=== PATIENT | male | born 1960 | race Caucasian/White ===

== ENCOUNTER 2017-10-04 19:16 | Emergency (ER) | payer MEDICAID ==
[2017-10-04 19:23] VITALS: BMI 25.7
[2017-10-04 19:27] VITALS: BP 117/79; PULSE 88; RESP 18; TEMP 99; O2SAT 98
--- NOTE | 2017-10-04 20:07 | ED PDOC ---
Arrival/HPI - General Historian: Patient - General Chief Complaint: ENT Problem Time Seen by Provider: 10/04/17 19:36 - History of Present Illness Narrative History of Present Illness (Text): 10/04/17 20:02 56yo male present with complaint of sore throat and fever x 2weeks. + Odynophagia. Denies dysphagia, drooling, abdominal pain, cough, sick contact, travel, any other complaint. (Zeny Griffin) Past Medical History - Provider Review Nursing Documentation Reviewed: Yes - Endocrine/Metabolic Hx Hypothyroidism: Yes - Psychiatric Hx Substance Use: No - Anesthesia Hx Anesthesia: No Family/Social History - Physician Review Nursing Documentation Reviewed: Yes Family/Social History: Unknown Family HX Smoking Status: Never Smoked Hx Alcohol Use: Yes Frequency of alcohol use: Socially Hx Substance Use: No Allergies/Home Meds Allergies/Adverse Reactions: Allergies No Known Allergies Allergy (Verified 06/30/16 11:57) Home Medications: Home Meds Medication Instructions Recorded Confirmed Diphenhydramine HCl/Calamine 180 ml TP DAILY 06/30/16 06/30/16 [Caldyphen Lotion] Levothyroxine [Synthroid] 25 mcg PO DAILY 06/30/16 06/30/16 Valacyclovir HCl [Valacyclovir] 1 gm PO DAILY 06/30/16 06/30/16 Review of Systems - Physician Review All systems were reviewed & negative as marked: Yes - Review of Systems Constitutional: Fevers Eyes: Normal ENT: Sore Throat Respiratory: Normal Cardiovascular: Normal Gastrointestinal: Normal Genitourinary Male: Normal Musculoskeletal: Normal Skin: Normal Neurological: Normal Endocrine: Normal Hemo/Lymphatic: Normal Psychiatric: Normal Physical Exam Vital Signs Reviewed: Yes Temperature: Afebrile Blood Pressure: Normal Pulse: Regular Respiratory Rate: Normal Appearance: Positive for: Well-Appearing, Non-Toxic, Comfortable Pain Distress: None Mental Status: Positive for: Alert and Oriented X 3 - Systems Exam Head: Present: Atraumatic, Normocephalic Pupils: Present: PERRL Extroacular Muscles: Present: EOMI Conjunctiva: Present: Normal Mouth: Present: Moist Mucous Membranes Pharnyx: Present: Normal. No: ERYTHEMA, EXUDATE, TONSILS ENLARGED, Peritonsilar Swelling, Uvular Deviation, Muffled/Hoarse Voice, Soft Palate/ Uvular Edema Neck: Present: Normal Range of Motion Respiratory/Chest: Present: Clear to Auscultation, Good Air Exchange. No: Respiratory Distress, Accessory Muscle Use Cardiovascular: Present: Regular Rate and Rhythm, Normal S1, S2. No: Murmurs Abdomen: Present: Normal Bowel Sounds. No: Tenderness, Distention, Peritoneal Signs Back: Present: Normal Inspection Upper Extremity: Present: Normal Inspection. No: Cyanosis, Edema Lower Extremity: Present: Normal Inspection. No: Edema Neurological: Present: GCS=15, CN II-XII Intact, Speech Normal Skin: Present: Warm, Dry, Normal Color. No: Rashes Psychiatric: Present: Alert, Oriented x 3, Normal Insight, Normal Concentration Vital Signs Temp Pulse Resp BP Pulse Ox 10/04/17 19:23 99.0 F 88 18 117/79 98 - Lab Interpretations Lab Results: Lab Results 10/04/17 19:44: Influenza Typ A,B (EIA) Negative for flu a/b, Grp A Beta Strep Ag Negative Disposition/Present on Arrival - Present on Arrival Any Indicators Present on Arrival: No History of DVT/PE: No History of Uncontrolled Diabetes: No Urinary Catheter: No History of Decub. Ulcer: No History Surgical Site Infection Following: None - Disposition Have Diagnosis and Disposition been Completed?: Yes Disposition Time: 20:10 Patient Plan: Discharge - Disposition Diagnosis: Sore throat (viral) Disposition: HOME/ ROUTINE Condition: STABLE Additional Instructions: Follow up with your doctor Return to ED for any new or worsening symptoms Prescriptions: Benzocaine/Menthol [Sore Throat Lozenge] 1 each MM BID #30 lozenge Referrals: Demetrius Mohr Jr., MD [Primary Care Provider] - Follow up with primary Forms: [employer] (Belizean)
== END 2017-10-04 20:26 | disposition home or self-care (01) ==
LOC: ED 19:16
DX: J02.8 Acute pharyngitis due to other specified organisms (principal)

== ENCOUNTER 2018-08-18 15:08 | Emergency (ER) | payer MEDICAID ==
[2018-08-18 16:03] VITALS: BMI 25.0
[2018-08-18 17:06] VITALS: RESP 18; TEMP 98
--- NOTE | 2018-08-18 17:24 | ED PDOC ---
Arrival/HPI - General Chief Complaint: Abnormal Skin Integrity Time Seen by Provider: 08/18/18 17:12 Historian: Patient - History of Present Illness Narrative History of Present Illness (Text): 57yo male, comes to Emergency room reporting blisters to his arms and legs after he was exposed to poison shayy. Patient states he was cutting grass when he might have been exposed; he has been using OTC spray with no relief of symptoms. P atient otherwise denies any fever, chills, throat swelling, or shortness of breath. No other complaints. Symptom Onset: Gradual Past Medical History - Provider Review Nursing Documentation Reviewed: Yes - Endocrine/Metabolic Hx Hypothyroidism: Yes - Psychiatric Hx Substance Use: No - Anesthesia Hx Anesthesia: No Family/Social History - Physician Review Nursing Documentation Reviewed: Yes Family/Social History: No Known Family HX Smoking Status: Never Smoked Hx Alcohol Use: Yes Hx Substance Use: No Allergies/Home Meds Allergies/Adverse Reactions: Allergies No Known Allergies Allergy (Verified 08/21/18 01:58) Home Medications: Home Meds Medication Instructions Recorded Confirmed Levothyroxine [Synthroid] 25 mcg PO DAILY 06/30/16 08/21/18 Valacyclovir HCl [Valacyclovir] 1 gm PO DAILY 06/30/16 08/21/18 Review of Systems - Physician Review All systems were reviewed & negative as marked: Yes (per HPI) - Review of Systems Skin: Rash Physical Exam - Physical Exam Narrative Physical Exam (Text): Gen: VS reviewed, alert, well developed, well nourished, nontoxic, mild distress. ENT: normal pharynx Eye: EOMI, PERRL Neck: no JVD, supple, no adenopathy CV: regular rate, regular rhythm, no rubs, no murmur, no gallops, S1, S2, pulses equal and strong Pulm: no distress, clear to auscultation, no wheeze, no rhonchi, breath sounds equal, no rales Abd: soft, nontender, no guarding, no rebound, no rigidity, normal bowel sounds Ext: no edema Skin: Blistering and erythematous rash to bilateral arms and leg; large patch noted to right lateral leg. No signs of cellulitis. Psych: responds appropriately to questions, normal affect Neuro: oriented x 3, CN2-12 intact grossly, motor intact, sensation intact Vital Signs Temp Pulse Resp BP Pulse Ox 08/18/18 16:10 98 F 80 18 99 08/18/18 16:03 125/73 Medical Decision Making ED Course and Treatment: Impression: 57yo male w/ exposure to poison shayy Plan: -- Prednisone 60mg PO -- Reassess and disposition Progress Notes: Patient to be d/c home with prednisone taper; instructed to apply calamine lotion to right lateral leg as well. - Scribe Statement The provider has reviewed the documentation as recorded by the Scribe Antoinette Ojeda Provider Scribe Attestation: All medical record entries made by the Scribe were at my direction and personally dictated by me. I have reviewed the chart and agree that the record accurately reflects my personal performance of the history, physical exam, medical decision making, and the department course for this patient. I have also personally directed, reviewed, and agree with the discharge instructions and disposition. Disposition/Present on Arrival - Present on Arrival Any Indicators Present on Arrival: No History of DVT/PE: No History of Uncontrolled Diabetes: No Urinary Catheter: No History of Decub. Ulcer: No History Surgical Site Infection Following: None - Disposition Have Diagnosis and Disposition been Completed?: Yes Diagnosis: Poison shayy Disposition: HOME/ ROUTINE Disposition Time: 09:39 Patient Plan: Discharge Condition: STABLE Discharge Instructions (ExitCare): Poison Shayy Print Language: IRISH Prescriptions: predniSONE [Prednisone] 20 mg PO DAILY 11 Days #24 tab Forms: [employer] (Yi)
[2018-08-18 17:36] VITALS: BP 118/83; PULSE 88; O2SAT 98
== END 2018-08-18 18:00 | disposition home or self-care (01) ==
LOC: ED 15:08
DX: L23.7 Allergic contact dermatitis due to plants, except food (principal)

== ENCOUNTER 2018-08-21 01:52 | Emergency (ER) | payer MEDICAID ==
[2018-08-21 01:52] VITALS: BMI 25.0
--- NOTE | 2018-08-21 02:26 | ED PDOC ---
Arrival/HPI - General Chief Complaint: Abnormal Skin Integrity Time Seen by Provider: 08/21/18 02:11 Historian: Patient - History of Present Illness Narrative History of Present Illness (Text): 08/21/18 02:21 A 57 year old male, with no significant past medical history, presents to the emergency department with a complaint of a worsening skin rash on his right thigh. 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 He states that since then he began to develop a skin rash on his right thigh. The patient states that he believes he came into contact with poison shayy while cleaning. He notes that he was seen in the emergency department for similar complaints, but 4 days ago, the rash started to become blister-like. He reports that he has been scratching his leg. The patient states that his left lower leg has become more swollen in comparison to the left. The patient was prescribed medication for his symptoms, but he states they have not been working. The patient denies fevers, chills, headache, dizziness, chest pain, shortness of breath, dyspnea on exertion, cough, sore throat, abdominal pain, nausea, vomiting, diarrhea, back pain, neck pain, urinary/bowel changes, trauma/injury, or any other complaints. Time/Duration: Other (Last week) Symptom Onset: Gradual Symptom Course: Worsening Activities at Onset: Rest, Light Context: Home, Work Past Medical History - Provider Review Nursing Documentation Reviewed: Yes - Endocrine/Metabolic Hx Hypothyroidism: Yes - Psychiatric Hx Substance Use: No - Anesthesia Hx Anesthesia: No Family/Social History - Physician Review Nursing Documentation Reviewed: Yes Family/Social History: No Known Family HX Smoking Status: Never Smoked Hx Alcohol Use: Yes Hx Substance Use: No Allergies/Home Meds Allergies/Adverse Reactions: Allergies No Known Allergies Allergy (Verified 08/21/18 01:58) Home Medications: Home Meds Medication Instructions Recorded Confirmed Levothyroxine [Synthroid] 25 mcg PO DAILY 06/30/16 08/21/18 Valacyclovir HCl [Valacyclovir] 1 gm PO DAILY 06/30/16 08/21/18 Review of Systems - Physician Review All systems were reviewed & negative as marked: Yes - Review of Systems Constitutional: absent: Fevers ENT: absent: Sore Throat Respiratory: absent: SOB, Cough Cardiovascular: absent: Chest Pain, BAXTER Gastrointestinal: absent: Abdominal Pain, Stool Changes, Diarrhea, Nausea, Vomiting Genitourinary Male: absent: Urinary Output Changes Musculoskeletal: absent: Back Pain, Neck Pain Skin: Rash (Blistering rash on right thigh) Neurological: absent: Headache, Dizziness Physical Exam Appearance: Positive for: Well-Appearing, Non-Toxic, Comfortable Pain Distress: None Mental Status: Positive for: Alert and Oriented X 3 - Systems Exam Head: Present: Atraumatic, Normocephalic Pupils: Present: PERRL Extroacular Muscles: Present: EOMI Conjunctiva: Present: Normal Mouth: Present: Moist Mucous Membranes Neck: Present: Normal Range of Motion Respiratory/Chest: Present: Clear to Auscultation, Good Air Exchange. No: Respiratory Distress, Accessory Muscle Use Cardiovascular: Present: Regular Rate and Rhythm, Normal S1, S2. No: Murmurs Abdomen: No: Tenderness, Distention, Peritoneal Signs Back: Present: Normal Inspection Upper Extremity: Present: Normal Inspection. No: Cyanosis, Edema Lower Extremity: Present: Normal Inspection. No: Edema Neurological: Present: GCS=15, CN II-XII Intact, Speech Normal Skin: Present: Warm, Dry, Rashes (7x8 cm. rash on right thigh. Rash does not extend over the joint.), Normal Color Psychiatric: Present: Alert, Oriented x 3, Normal Insight, Normal Concentration Medical Decision Making ED Course and Treatment: 08/21/18 02:27 Impression: A 57 year old male presents to the emergency department with a complaint of a worsening rash developing on his right thigh. NO uprwards tracks, crepitus or tight compartments. NO spread of erythema over joint lines. No joint pain. Given pt has been scratching area- will likely rx w/ keflex outpt and have pt followup and continue steroids. N/V intact w/ out swelling in RLE And LLE. NO trauma. - Scribe Statement The provider has reviewed the documentation as recorded by the Memeibe Zuleima Chambers Provider Scribe Attestation: All medical record entries made by the Scribe were at my direction and personally dictated by me. I have reviewed the chart and agree that the record accurately reflects my personal performance of the history, physical exam, medical decision making, and the department course for this patient. I have also personally directed, reviewed, and agree with the discharge instructions and disposition. Disposition/Present on Arrival - Present on Arrival Any Indicators Present on Arrival: Yes History of DVT/PE: No History of Uncontrolled Diabetes: No Urinary Catheter: No History of Decub. Ulcer: No History Surgical Site Infection Following: None - Disposition Have Diagnosis and Disposition been Completed?: Yes Diagnosis: Poison shayy dermatitis, Cellulitis Disposition: HOME/ ROUTINE Disposition Time: 03:00 Condition: GOOD Discharge Instructions (ExitCare): Poison Shayy, Poison Shayy, Poison [place], Poison [place] (DC), Cellulitis (ED) Print Language: MALDIVIAN Additional Instructions: TED CALDWELL, thank you for letting us take care of you today. Your provider was Jakub Sullivan and you were treated for skin problem. The emergency medical care you received today was directed at your acute symptoms. If you were prescribed any medication, please fill it and take as directed. It may take several days for your symptoms to resolve. Return to the Emergency Department if your symptoms worsen, do not improve, or if you have any other problems. Please contact your doctor or call one of the physicians/clinics you have been referred to that are listed on the Patient Visit Information form that is included in your discharge packet. Bring any paperwork you were given at discharge with you along with any medications you are taking to your follow up visit. Our treatment cannot replace ongoing medical care by a primary care provider outside of the emergency department. Thank you for allowing the [facility] team to be part of your care today. If you had an X-Ray or CT scan: A Radiologist will review the ED reading if any change in treatment is needed we will contact you. If you had a blood, urine, or wound culture: It will take several days for the results, if any change in treatment is needed we will contact you. If you had an STI test: It will take 48 hours for the results. Please call after 1 week if you have not heard back. Prescriptions: Cephalexin [cephalexin] 500 mg PO Q6H 5 Days #20 cap RX: DiphenhydrAMINE [Benadryl] 25 mg PO Q6H 7 Days #28 cap Referrals: Trina Stephen [Primary Care Provider] - Follow up with primary Forms: [employer] (Qatari)
[2018-08-21 03:46] VITALS: BP 128/72; PULSE 77; RESP 18; O2SAT 99
[2018-08-21 03:54] VITALS: TEMP 98.4
== END 2018-08-21 03:25 | disposition home or self-care (01) ==
LOC: ED 01:52
DX: L23.7 Allergic contact dermatitis due to plants, except food (principal); L03.90 Cellulitis, unspecified